=== PATIENT | female | born 1995 | race Caucasian/White ===

== ENCOUNTER 2019-07-09 01:34 | Emergency (ER) | payer OTHER ==
[2019-07-09 02:22] VITALS: BP 114/73; PULSE 90; TEMP 98; BMI 46.2
--- NOTE | 2019-07-09 04:33 | PDOC ---
Attending Attestation - Resident Resident Name: Keyshawn Alba - ED Attending Attestation I have performed the following: I have examined & evaluated the patient, The case was reviewed & discussed with the resident, I agree w/resident's findings & plan, Exceptions are as noted - HPI HPI: 07/15/19 22:32 See resident HPI - Physicial Exam PE: 07/15/19 22:32 Agree with documented exam - Medical Decision Making 07/15/19 22:32 23F with temporal [place] triggered when eating on side of L mandibular molar with cavity no signs of abscess, tolerating secretions, normal wob dc, f/u dentist
[2019-07-09] MEDS ORDERED: METOCLOPRAMIDE HCL INJECTION 10 MG/2 ML VIAL IVPUSH ONE (05:04)
[2019-07-09] MEDS ORDERED: METOCLOPRAMIDE HCL INJECTION 10 MG/2 ML VIAL ONE (05:56)
--- NOTE | 2019-07-09 05:59 | PDOC ---
History of Present Illness - General Chief Complaint: Migraine Headache Stated Complaint: MIGRAINE Time Seen by Provider: 07/09/19 03:50 - History of Present Illness Initial Comments: 07/09/19 05:33 23f with no pmh presents with left sided temporal headache for the past 2 week which presented simultaneously with a ipsilateral mandibular molar pain. Saw a dentist who told her she needed a root canal. The headache was progressively worse, now 10/10 preventing her from falling asleep, non-radiating. She has taken [id number] tabs of Tylenol daily with no relief and 600mg motrin today. Denies photophobia, vision changes, neurological deficits., Is feeling better at the time of presentation. Noticed thjat the headache is reproducible whenever she eats with that left mandibular molar. Past History - Past Medical History Allergies/Adverse Reactions: Allergies Allergy/AdvReac Type Severity Reaction Status Date / Time No Known Allergies Allergy Verified 07/09/19 02:20 Home Medications: Ambulatory Orders NK [No Known Home Medication] 07/09/19 - Psycho Social/Smoking Cessation Hx Smoking History: Never smoked Have you smoked in the past 12 months: No Information on smoking cessation initiated: No Hx Alcohol Use: No Drug/Substance Use Hx: No Review of Systems - Review of Systems Able to Perform ROS?: Yes Is the patient limited Moroccan proficient: No Constitutional: No: Symptoms Reported HEENTM: No: Symptoms Reported Respiratory: No: Symptoms reported Cardiac (ROS): No: Symptoms Reported ABD/GI: No: Symptoms Reported : No: Symptoms Reported Musculoskeletal: No: Symptoms Reported Integumentary: No: Symptoms Reported Neurological: Yes: See HPI All Other Systems: Reviewed and Negative *Physical Exam - Vital Signs Last Vital Signs Temp Pulse Resp BP Pulse Ox 98.0 F 90 20 114/73 100 07/09/19 02:20 07/09/19 02:20 07/09/19 02:20 07/09/19 02:20 07/09/19 02:20 - Physical Exam General Appearance: Yes: Nourished, Appropriately Dressed. No: Apparent Distress HEENT: positive: EOMI, JESSICA, Normal ENT Inspection, Other (No sign of dental abcess. ) Respiratory/Chest: positive: Lungs Clear, Normal Breath Sounds. negative: Chest Tender, Respiratory Distress Cardiovascular: positive: Regular Rhythm, Regular Rate, S1, S2 Gastrointestinal/Abdominal: positive: Normal Bowel Sounds, Flat, Soft. negative : Tender Extremity: positive: Normal Capillary Refill, Normal Inspection, Normal Range of Motion Integumentary: positive: Normal Color, Dry, Warm Neurologic: positive: Fully Oriented, Alert, Normal Mood/Affect, Normal Response Medical Decision Making - Medical Decision Making 07/09/19 06:21 23F with 2 weeks of right temporal headache. Will attempt to treat headache with reglan, possible lidocaine injection if that doesnt work. Ultimately will need her tooth extracted to find relief. Patient feels complete relief after reglan. Ok to go home. Discharge - Discharge Information Problems reviewed: Yes Clinical Impression/Diagnosis: Migraine Condition: Improved Disposition: HOME - Admission No - Follow up/Referral Referrals: Nelsy Soni [Primary Care Provider] - - Patient Discharge Instructions Patient Printed Discharge Instructions: Root Canal Treatment, DI for Migraine Additional Instructions: Follow up with your dentist for your root canal as soon as you can. Come back to the emergency department for any new, worsening or concerning symptom. - Post Discharge Activity
== END 2019-07-09 07:27 | disposition home or self-care (01) ==
LOC: JER 01:34
PROC: 3E033GC Introduction of Other Therapeutic Substance into Peripheral Vein, Percutaneous Approach (ICD-10-PCS; principal; 2019-07-09)
DX: G43.909 Migraine, unspecified, not intractable, without status migrainosus (principal)
CPT/HCPCS: 99284-25